=== PATIENT | male | born 1960 | race African-American/Black ===

== ENCOUNTER 2021-12-08 08:50 | Day surgery (SDC) | payer OTHER ==
[2021-12-07 13:04] LABS: SARS-CoV-2 Antigen Rapid Res Negative (Negative)
[~2021-12-08 08:50] MED LIST: FENTANYL CITR 100 MCG/2 ML ONE; LIDOCAINE 2% MPF 5 ML VIAL ONE; MIDAZOLAM HCL 2 MG/2 ML INJ ONE; ONDANSETRON 4 MG/2 ML VIAL ONE; ROCURONIUM 50 MG/5 ML VIAL IV ONE; propofoL 200 MG/20 ML VIAL IV ONE
[2021-12-08] MEDS ORDERED: EPINEPHRINE/PF 1 MG/ML AMP ONE (09:05)
[2021-12-08] MEDS ORDERED: SUGAMMADEX SODIUM 200 MG/2 ML VIAL IV ONE (09:10)
[2021-12-08] MEDS ORDERED: NA CHLORIDE 0.9% 1,000 ML ONE (09:15)
[2021-12-08] MEDS ORDERED: INSULIN -REGULAR HUMAN 50 UNIT/0.5 ML ML ONE (09:43)
[2021-12-08] MEDS ORDERED: SUCCINYLCHOLINE 20 MG/ML (10 ML) IV ONE (09:54)
[2021-12-08] MEDS ORDERED: EPHEDRINE SULF 50 MG/ML VIAL ONE (10:38)
--- NOTE | 2021-12-08 10:52 | P.OP ---
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 A [employer]ounds laryngoscope was fitted with a rigid 15 degree telescope and used to perform a direct laryngoscopy. Exposure was mildly difficult due to the anterior location of the lesion. Once the vocal folds were adequately visualized, the laryngoscope was placed in suspension. Dusting the suspension allowed for improved visualization of the anterior portion of the vocal cords but the lesion and anterior commissure was only visible with manual pressure on the laryngeal skeleton externally. Photodocumentation was collected of the lesion. A large cup forceps was used to grasp and remove the lesion. With suctioning, a second round smooth lesion was noted just medial and deep to the second lesion. This was also grasped with a large cup forcep and removed. A pledget soaked in concentrated epi was applied directly to the biopsy site and left in place for several minutes to aid in hemostasis. After removal of the pledget, small amount of residual lesion was noted along the anterior surface near the anterior commissure of the left true vocal fold. A small up biting cup forcep was used to remove the residual portion of this lesion. The area was then carefully removed and no additional gross lesion was clearly identified. An additional pledget was applied with epinephrine to aid in hemostasis for several minutes. After removal the surgical site appeared dry. The subglottis was briefly examined and appeared within normal limits. The laryngoscope was released from suspension and carefully removed to avoid inadvertent extubation. There was a small pressure ulcer noted on the left superior gingiva from the laryngoscope but there is no significant bleeding. The patient was returned to care of anesthesia for awakening and extubation in the operating room which proceeded without difficulty. He was transferred to the recovery room in stable condition. Complications: None Implants: none Fluids & blood products: 400ml crystalloid Transferred to: Recovery Room Condition: Good
[2021-12-08] MEDS: HYDROMORPHONE HCL 1 MG/ML INJ ONE ×2 (11:04→11:10)
[2021-12-08] MEDS ORDERED: ACETAMINOPHEN 160 MG/5 ML UCUP ONE (12:16)
[2021-12-08 15:09] VITALS: BP 133/67; TEMP 97.6; O2SAT 97
--- NOTE | 2021-12-09 17:33 | EKG ---
Test Date: 2021-12-07 Test Time: 11:39:58 Grid Trimmer: CHERELLE MEASUREMENT RESULTS: Intervals: Rate: 73 PA: 148 QRSD: 82 QT: 382 QTc: 420 [place]: P: 51 PA: 148 QRS: 19 T: 17 INTERPRETIVE STATEMENTS: Normal sinus rhythm Possible Left atrial enlargement Borderline ECG Compared to ECG 12/27/2016 13:41:31 No significant changes Electronically Signed On 12-09-21 17:30:13 CDT by Eric Santana
== END 2021-12-08 12:37 | disposition home or self-care (01) ==
LOC: OR 08:50
PROVIDERS: ATTEND Otolaryngology
PROC: 0CBV8ZX Excision of Left Vocal Cord, Via Natural or Artificial Opening Endoscopic, Diagnostic (ICD-10-PCS; principal; 2021-12-08 10:30)
DX: J38.1 Polyp of vocal cord and larynx (principal); Z20.822 Contact with and (suspected) exposure to COVID-19
CPT/HCPCS: 93005; 36415; 82947 ×2; 88305; 87811; 31536; J2704; J0171; J0330; J1815; J2250; J3010; J1170; J7030; J2405